=== PATIENT | male | born 1995 | race Caucasian/White ===

== ENCOUNTER 2017-07-09 08:54 | Emergency (ER) | payer OTHER ==
[~2017-07-09] VITALS: Ht 167.6 cm; Wt 82.1 kg
[2017-07-09 08:57] VITALS: Ht 167.6 cm; Wt 82.1 kg
[2017-07-09] MEDS ORDERED: TRIA15CR55 TOP (09:38)
--- NOTE | 2017-07-09 09:53 | ERD ---
ER Documentation Chief Complaint Chief Complaint Complains of a rash to the right hand x 3 days HPI Patient is a 21-year-old male who presents ED for concerns of a rash to his right hand 3 days. Patient states that he has tiny bumps throughout the upper portion of his hand. Patient denies any spreading of the rash. Patient states the rash is itchy. Patient denies any outdoor activity. 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 Patient denies any urias. Patient denies any lip swelling, tongue swelling or difficulty swallowing. Patient denies any fevers, chills, nausea, vomiting, myalgias, chest pain, shortness of breath or LOC. Patient is right-hand dominant. ROS All systems reviewed and are negative except as per history of present illness. Medications Home Meds Active Scripts Triamcinolone Acetonide (Triamcinolone Acetonide) 0.1% - 15 Gm Cream.gm., 1 APPLIC TOP BID, #1 TUB Prov:ZOIE BARRIOS PA-C 07/09/17 Allergies Allergies: Coded Allergies: No Known Allergy (Unverified , 07/09/17) PMhx/Soc Medical and Surgical Hx: pt denies Medical Hx, pt denies Surgical Hx History of Surgery: No Anesthesia Reaction: No Hx Neurological Disorder: No Hx Respiratory Disorders: No Hx Cardiac Disorders: No Hx Psychiatric Problems: No Hx Miscellaneous Medical Probl: No Hx Alcohol Use: No Hx Substance Use: No Hx Tobacco Use: No Smoking Status: Never smoker Physical Exam Vitals Vital Signs Date Time Temp Pulse Resp B/P Pulse Ox O2 Delivery O2 Flow Rate FiO2 07/09/17 08:57 98.9 96 20 144/92 100 Physical Exam GENERAL: Well-developed, well-nourished male. Appears in no acute distress. Speaking in full sentences. HEAD: Normocephalic, atraumatic. EYES: Pupils are equally reactive bilaterally. EOMs grossly intact. No conjunctival erythema. ENT: Moist mucous membranes. No uvula deviation. No kissing tonsils. No lip swelling. No tongue swelling. No difficulty handling secretions. NECK: Supple. No meningismus. Normal range of motion of the neck. EXTREMITIES: Equal pulses bilaterally. No peripheral clubbing, cyanosis or edema. No unilateral leg swelling. Patient has normal range of motion of all digits of the right hand. NEUROLOGIC: Alert and oriented. Moving all four extremities without any difficulty. Normal speech. Steady gait. SKIN: Warm and dry. Tiny, erythematous, non fluid filled papules noted on the dorsal aspect of the patient's right hand. No warmth or swelling. No streaking. No fingers swelling noted. Negative Nikolsky sign. Procedures/MDM MEDICAL DECISION MAKING: This is a 21-year-old male presents for concerns of a rash to his right hand 3 days. Patient denied any fevers or chills. Patient denies any recent outdoor activity. Patient did describe the rash to be itchy in nature. Vital signs were reviewed. Patient was afebrile. Patient is not diabetic. Given the rash is itchy nature rash may be of allergic etiology. Low suspicion for bacterial etiology at this time given that patient does not have any warmth, active discharge fever or chills. At this time, prescribed the patient course of triamcinolone.. Patient was advised to take Benadryl OTC. Low suspicion for necrotizing fasciitis, sepsis, gangrene, Toñito-Bala syndrome, toxic epidural necrolysis, abscess, cellulitis, herpes zoster, anaphylaxis, allergic reaction, fungal infection, insect bite, impetigo. PRESCRIPTIONS: Triamcinolone DISCHARGE: At this time, patient is stable for discharge and outpatient management. Patient was given red flags for return. Advised to return for any worsening rash, redness, swelling, fever, chills. I have advised the patient to avoid any new products, creams or possible allergens. I have advised the patient to avoid scratching the lesions. I have instructed the patient to follow-up with his/her primary care physician in 1-2 days. If symptoms persist, patient may need to see a ski instructor for further examinations and testing. I have instructed the patient to promptly return to the ER at any time for any new or worsening symptoms including increased pain, fever, redness, swelling, warmth, difficulty breathing or vomiting. The patient and/or family expressed understanding of and agreement with this plan. All questions were answered. Home care instructions were provided. Patient's blood pressure was elevated (>120/80) but appears stable without evidence of hypertensive emergency, hypertensive urgency or end-organ failure. I had discussion with the patient about the risks of hypertension. I have advised the patient to follow up with his/her primary care physician for outpatient monitoring and treatment for hypertension in 2-3 days. I have instructed the patient to return to the ER for any new or worsening symptoms including chest pain, shortness of breath, headache, blurred vision, confusion, nausea, vomiting or LOC. Disclaimer: Inadvertent spelling and grammatical errors are likely due to EHR/ dictation software use and do not reflect on the overall quality of patient care. Also, please note that the electronic time recorded on this note does not necessarily reflect the actual time of the patient encounter. Departure Diagnosis: Primary Impression: Rash Condition: Stable Patient Instructions: Self-Care for Skin Rashes Referrals: JOSE GROSSMAN,SHAYY PARIKH,KAYLA DE LA PAZ,ALTON GREGORY,CHANDRAKANT HOLCOMB,CHANDRAKANT Molina [facility] YOU HAVE RECEIVED A MEDICAL SCREENING EXAM AND THE RESULTS INDICATE THAT YOU DO NOT HAVE A CONDITION THAT REQUIRES URGENT TREATMENT IN THE EMERGENCY DEPARTMENT. FURTHER EVALUATION AND TREATMENT OF YOUR CONDITION CAN WAIT UNTIL YOU ARE SEEN IN YOUR DOCTORS OFFICE WITHIN THE NEXT 1-2 DAYS. IT IS YOUR RESPONSIBILITY TO MAKE AN APPOINTMENT FOR FOLOW-UP CARE. IF YOU HAVE A PRIMARY DOCTOR --you should call your primary doctor and schedule an appointment IF YOU DO NOT HAVE A PRIMARY DOCTOR YOU CAN CALL OUR PHYSICIAN REFERRAL HOTLINE AT IF YOU CAN NOT AFFORD TO SEE A PHYSICIAN YOU CAN CHOSE FROM THE FOLLOWING [facility] [address] [facility]. [facility] [address] [facility] [facility] [address] [facility] [facility] [address] [facility] [facility] [address] [facility]. [facility] [address] [facility]. [facility] YOU HAVE RECEIVED A MEDICAL SCREENING EXAM AND THE RESULTS INDICATE THAT YOU DO NOT HAVE A CONDITION THAT REQUIRES URGENT TREATMENT IN THE EMERGENCY DEPARTMENT. FURTHER EVALUATION AND TREATMENT OF YOUR CONDITION CAN WAIT UNTIL YOU ARE SEEN IN YOUR DOCTORS OFFICE WITHIN THE NEXT 1-2 DAYS. IT IS YOUR RESPONSIBILITY TO MAKE AN APPOINTMENT FOR FOLOW-UP CARE. IF YOU HAVE A PRIMARY DOCTOR --you should call your primary doctor and schedule and appointment IF YOU DO NOT HAVE A PRIMARY DOCTOR YOU CAN CALL OUR PHYSICIAN REFERRAL HOTLINE AT . IF YOU CAN NOT AFFORD TO SEE A PHYSICIAN YOU CAN CHOSE FROM THE FOLLOWING [facility] INSTITUTIONS: [facility] [id number] [place] [address] [facility] [address] [place] [address] [facility] [address] [place] [address] Additional Instructions: Call your primary care doctor TOMORROW for an appointment during the next 1-2 days.See the doctor sooner or return here if your condition worsens before your appointment time. Return for any new or worsening symptoms including but not limited to, worsening rash, warmth, redness, fever, chills. Follow up with ski instructor. See referral information. ZOIE BARRIOS PA-C Jul 09, 2017 09:53
== END 2017-07-09 09:50 | disposition home or self-care (01) ==
LOC: FTE 08:54
DX: R21 Rash and other nonspecific skin eruption (principal)
CPT/HCPCS: 99283

== ENCOUNTER 2018-06-15 13:17 | Emergency (ER) | END 2018-06-15 14:20 | disposition home or self-care (01) ==